=== PATIENT | female | born 1975 | race Two or more races ===

== ENCOUNTER 2017-03-01 10:45 | Emergency (ER) | payer SELFPAY ==
[2017-03-01] MEDS ORDERED: TDAP ADULT 0.5 ML INJ (BOOSTRIX) IM ONE (11:05)
--- NOTE | 2017-03-01 11:27 | EDPHY ---
H & P Smoking Status: Never smoked Time Seen by Provider: 03/01/17 10:56 HPI/ROS: CHIEF COMPLAINT: Facial laceration, abdominal pain HISTORY OF PRESENT ILLNESS: 41-year-old female presents after a fall with a facial laceration and abdominal pain. She tripped and fell down several stairs just prior to arrival. Immediate onset of severe headache, 10/10, with associated facial laceration. She also complains of left-sided abdominal tenderness, right forearm pain and right foot pain. REVIEW OF SYSTEMS: Constitutional: No weakness Eyes: No visual changes or eye pain ENT: No dental trauma Neck:No pain or injury Respiratory: No shortness of breath Cardiac: No chest pain Gastrointestinal: no vomiting Back:No pain or injury Genitourinary: No hematuria Musculoskeletal: No joint pain Neurological: no dizziness (Kim Ontiveros) Past Medical/Surgical History: Denies (Kim Ontiveros) Social History: No recent alcohol (Kim Ontiveros) Physical Exam: General Appearance: Alert, tearful at times, appears anxious Head: 4 cm facial laceration, vertically oriented, that extends from the lateral aspect of the left eyebrow to the mid forehead Eyes: No conjunctival erythema, PERRLA, EOMI, no hyphema ENT, Mouth: No hemotympanum, no oral trauma, no bony tenderness Neck: Nontender, full range of motion without pain Respiratory: No chest wall tenderness, lungs clear bilaterally Cardiovascular: Regular rate and rhythm Abdomen: Abdomen is soft, left upper quadrant tenderness Skin: no abrasions Back: No midline T/L/S tenderness Extremities: Pelvis is stable and nontender; right forearm tenderness and ecchymosis, range of motion of the right elbow and wrist without pain; right foot-mild midfoot tenderness, without swelling or ecchymosis Neurological: A&Ox3, normal motor function, normal sensory exam, cranial nerves intact Psychiatric: anxious (Kim Ontiveros) Constitutional: Initial Vital Signs Temperature (C) 36.8 C 03/01/17 10:49 Heart Rate 90 03/01/17 10:49 Respiratory Rate 18 03/01/17 10:49 Blood Pressure 124/51 H 03/01/17 10:49 O2 Sat (%) 100 03/01/17 10:49 O2 Delivery Mode Room Air Allergies/Adverse Reactions: Penicillins Allergy (Verified 03/01/17 10:48) Home Medications: Medication Instructions Recorded NK [No Known Home Meds] 03/01/17 Medical Decision Making - Diagnostics Imaging Results: Imaging Impressions Head CT 03/01/17 11:28 Impression: Normal. Abdomen CT 03/01/17 11:29 Impression: Small left ovarian cyst. No acute traumatic sequelae. I telephoned results to Dr. Lior Dumont at 1307 hours. Foot X-Ray 03/01/17 11:30 Impression: Negative. No acute fracture. Forearm X-Ray 03/01/17 11:30 Impression: Normal. No acute fracture. Procedures: Procedure: Trauma ultrasound. Limited echocardiogram for pericardial effusion. Limited bedside ultrasound was performed and interpreted by myself for the indication of: chest trauma utilizing the thoracoabdominal emergency ultrasound protocol. Limited transthoracic echocardiogram: The pericardium was visualized and found to be negative for pericardial fluid. The study was negative for pericardial effusion. Limited abdominal ultrasound for blunt abdominal trauma. 1) The right upper quadrant was visualized and was found to be negative for intraperitoneal fluid. 2) The left upper quadrant was visualized and found to be negative for intraperitoneal fluid. The study was felt to be negative for free intraperitoneal fluid. Limited pelvic ultrasound was conducted for abdominal trauma. The bladder was visualized and did not reveal an anechoic area outside of the adjacent urinary bladder. Bladder was distended with urine. Procedure: Laceration repair. The 4 cm laceration on the forehead was anesthetized using lidocaine with epinephrine. The wound was irrigated, draped and explored to its base with a gloved finger. There were no deep structures involved. No foreign body palpable. The wound was repaired with 6 0 Ethilon. The wound repair was simple. (Kim Ontiveros) ED Course/Re-evaluation: This patient presents with multiple injuries after a fall down a flight of stairs. Fast exam was performed by me because of left upper quadrant tenderness ; the study is negative. The facial laceration was sutured by me. She was then sent to CT scan for a CT scan of the head and abdomen/pelvis. CT head indicated because of severe 10/10 GRANT and mechanism of injury. Repeat neuro/abd exam unchanged at 1245pm. Signed over to Dr. Dumont at shift change. Xrays/CT scans pending. (Kim Ontiveros) Differential Diagnosis: Differential diagnosis includes though it is not limited to fracture, intracranial hemorrhage, pneumothorax, hemothorax, intra-abdominal hemorrhage. ( Kim Ontiveros) Other Provider: I assumed care of the 1:[address] and x-ray studies. CT scan of the head, abdomen and extremity x-rays demonstrate no evidence of an acute injury. I personally evaluated the patient at 1:20 p.m.. She is neurologically intact. Her GCS is 15. I have informed her of the results of her imaging studies and need to return for suture removal. She will be discharged home with customary aftercare instructions and return precautions. (Markus Dumont) - Data Points Laboratory Results: Laboratory Results 03/01/17 11:20 03/01/17 03/01/17 03/01/17 11:21 11:20 11:20 WBC 5.96 10^3/uL 10^3/uL (3.80-9.50) RBC 4.84 10^6/uL 10^6/uL (4.18-5.33) Hgb 9.2 g/dL L g/dL (12.6-16.3) POC Hgb 11.6 gm/dL L gm/dL (12.6-16.3) Hct 31.8 % L % (38.0-47.0) POC Hct 34 % L % (38-47) MCV 65.7 fL L fL (81.5-99.8) MCH 19.0 pg L pg (27.9-34.1) MCHC 28.9 g/dL L g/dL (32.4-36.7) RDW 19.0 % H % (11.5-15.2) Plt Count 383 10^3/uL 10^3/uL (150-400) MPV 10.3 fL fL (8.7-11.7) Neut % (Auto) 51.6 % % (39.3-74.2) Lymph % (Auto) 36.4 % % (15.0-45.0) Catron % (Auto) 8.2 % % (4.5-13.0) Eos % (Auto) 2.5 % % (0.6-7.6) Baso % (Auto) 1.0 % % (0.3-1.7) Nucleat RBC Rel Count 0.0 % % (0.0-0.2) Absolute Neuts (auto) 3.07 10^3/uL 10^3/uL (1.70-6.50) Absolute Lymphs (auto) 2.17 10^3/uL 10^3/uL (1.00-3.00) Absolute Monos (auto) 0.49 10^3/uL 10^3/uL (0.30-0.80) Absolute Eos (auto) 0.15 10^3/uL 10^3/uL (0.03-0.40) Absolute Basos (auto) 0.06 10^3/uL 10^3/uL (0.02-0.10) Absolute Nucleated RBC 0.00 10^3/uL 10^3/uL (0-0.01) Immature Gran % 0.3 % % (0.0-1.1) Immature Gran # 0.02 10^3/uL 10^3/uL (0.00-0.10) Platelet Estimate ADEQUATE (ADEQ) Hypochromasia 2+ H Microcytic Cells 1+ H Oval Macrocytes 1+ H Echinocytes 1+ H Elliptocytes 1+ H Schistocytes 1+ H Smear Review By Pending POC Sodium 141 mEq/L mEq/L (134-144) POC Potassium 3.7 mEq/L mEq/L (3.3-5.0) POC Chloride 106 mEq/L mEq/L (97-110) POC BUN 11 mg/dL mg/dL (7-23) POC Creatinine 0.6 mg/dL mg/dL (0.6-1.0) POC Glucose 93 mg/dL mg/dL (70-100) Beta HCG, Qual NEGATIVE Medications Given: Discontinued Medications Diphtheria/Tetanus/Acell Pertussis (Boostrix) 0.5 ml IM .ONCE ONE Stop: 03/01/17 11:06 Last Admin: 03/01/17 11:30 Dose: 0.5 ml Point of Care Test Results: 03/01/17 11:21 POC Sodium 141 POC Potassium 3.7 POC Chloride 106 POC BUN 11 POC Creatinine 0.6 POC Glucose 93 Departure - Departure Disposition: Home, Routine, Self-Care Clinical Impression: Facial laceration Qualifiers: Encounter type: initial encounter Qualified Code(s): S01.81XA - Laceration without foreign body of other part of head, initial encounter Head injury, acute Qualifiers: Encounter type: initial encounter Qualified Code(s): S09.90XA - Unspecified injury of head, initial encounter Strain of foot, right Qualifiers: Encounter type: initial encounter Qualified Code(s): S96.911A - Strain of unspecified muscle and tendon at ankle and foot level, right foot, initial encounter Strain of forearm, right Qualifiers: Encounter type: initial encounter Qualified Code(s): S56.911A - Strain of unspecified muscles, fascia and tendons at forearm level, right arm, initial encounter Condition: Good Instructions: Facial Laceration (ED) Additional Instructions: Return for suture removal in 5 days. Take ibuprofen or Tylenol as needed for pain. Return for worsening pain, shortness of breath, dizziness or any concerns. Referrals: [facility],. [Clinic] - As per Instructions
[2017-03-01] MEDS ORDERED: IOPAMIDOL (ISOVUE-300) 100 ML BTL ONE (11:36)
[2017-03-01 11:37] LABS: % IMMATURE GRANULYOCYTES 0.3 % (0.0-1.1); ABSOLUTE IMMATURE GRANULOCYTES 0.02 10^3/uL (0.00-0.10); ADD DIFF? NO; ADD MORPH? YES; ADD SCAN? NO; ATYPICAL LYMPHOCYTE FLAG 20 (0-99); FRAGMENT RBC FLAG 40 (0-99); HEMATOCRIT 31.8 % (38.0-47.0); HEMOGLOBIN 9.2 g/dL (12.6-16.3); LEFT SHIFT FLG 0 (0-99); LIPEMIA HEMOLYSIS FLAG 70 (0-99); MEAN PLATELET VOLUME 10.3 fL (8.7-11.7); PLATELET CLUMPS FLAG 10 (0-99); PLATELET COUNT 383 10^3/uL (150-400); RED BLOOD CELL COUNT 4.84 10^6/uL (4.18-5.33)
[2017-03-01 11:39] LABS: MEAN CELL HEMOGLOBIN CONCENTR. 28.9 g/dL (32.4-36.7); MEAN CELL VOLUME 65.7 fL (81.5-99.8)
[2017-03-01 12:05] LABS: ECHINOCYTES 1+; ELLIPTOCYTES 1+; HYPOCHROMIA 2+; MACROCYTES 1+; MICROCYTES 1+; PLATELET ESTIMATE ADEQUATE (ADEQ); SCHISTOCYTES 1+
[2017-03-01] MEDS ORDERED: IBUPROFEN 600 MG TAB PO ONE (13:56)
[2017-03-01 14:04] VITALS: BP 111/63; PULSE 69; RESP 16; TEMP 98.6; O2SAT 98
== END 2017-03-01 14:11 | disposition home or self-care (01) ==
PROC: 0HQ1XZZ Repair Face Skin, External Approach (ICD-10-PCS; principal; 2017-03-01)
DX: S01.81XA Laceration without foreign body of other part of head, initial encounter (principal); S96.911A Strain of unspecified muscle and tendon at ankle and foot level, right foot, initial encounter; S56.911A Strain of unspecified muscles, fascia and tendons at forearm level, right arm, initial encounter; Z23 Encounter for immunization; W10.8XXA Fall (on) (from) other stairs and steps, initial encounter
CPT/HCPCS: 82947-QW; Q9967